=== PATIENT | male | born 1980 | race African-American/Black ===

== ENCOUNTER 2021-12-09 19:50 | Emergency (ER) | payer SELFPAY ==
[~2021-12-09] VITALS: Ht 175.3 cm; Wt 68.0 kg
[2021-12-09 19:56] VITALS: BP 122/82
== END 2021-12-09 21:38 | disposition home or self-care (01) ==
LOC: ER 19:50
DX: K59.00 Constipation, unspecified (principal); Z00.00 Encounter for general adult medical examination without abnormal findings; Z86.59 Personal history of other mental and behavioral disorders
CPT/HCPCS: 99283

== ENCOUNTER 2021-12-10 01:22 | Emergency (ER) | payer SELFPAY ==
[~2021-12-10] VITALS: Ht 160 cm; Wt 64.0 kg
[2021-12-10] MEDS ORDERED: IBUPROFEN 400MG TABLET PO ONE (02:30)
[2021-12-10 03:11] VITALS: BP 135/86
== END 2021-12-10 03:17 | disposition home or self-care (01) ==
LOC: ER 01:50
DX: M25.472 Effusion, left ankle (principal); F20.9 Schizophrenia, unspecified
CPT/HCPCS: 73610; 99283

== ENCOUNTER 2021-12-10 19:47 | Emergency (ER) | payer SELFPAY ==
[~2021-12-10] VITALS: Ht 160 cm; Wt 60.0 kg
[2021-12-10] MEDS ORDERED: IBUPROFEN 600MG TABLET PO ONE (20:30)
[2021-12-11] VITALS: BP 100/57
== END 2021-12-11 04:32 | disposition home or self-care (01) ==
LOC: ER 19:47
DX: S93.492A Sprain of other ligament of left ankle, initial encounter (principal); F20.9 Schizophrenia, unspecified; X58.XXXA Exposure to other specified factors, initial encounter; Y93.89 Activity, other specified; Y92.9 Unspecified place or not applicable; Z20.822 Contact with and (suspected) exposure to COVID-19
CPT/HCPCS: 87426; 93005; 99284